=== PATIENT | female | born 1995 | race Caucasian/White ===

== ENCOUNTER 2024-06-12 19:32 | Inpatient (IN) | payer OTHER, SELFPAY ==
[2024-06-12 19:40] VITALS: BMI 29.8
[2024-06-12 20:20] LABS: % Basophils 0.6 % (0-2); % Eosinophils 0.4 % (0-6); % Immature Granulocytes 0.4 % (0-0.5); % Lymphocytes 32.9 % (20.5-51.1); % Monocytes 5.2 % (1.7-9.3); % Neutrophils 60.5 % (42.2-75.2); Absolute Basophils 0.1 10^3/uL (0-0.2); Absolute Lymphocytes 3.4 10^3/uL (1.2-3.4); Absolute Monocytes 0.5 10^3/uL (0.1-0.6); Absolute Neutrophils 6.2 10^3/uL (1.4-6.5); Hematocrit 37.5 % (37.0-47.0); Hemoglobin 13.5 g/dL (12.0-16.0); Mean Corpuscular Hgb 30.9 pg (27.0-31.0); Mean Corpuscular Volume 85.8 fL (81.0-99.0); Mean Platelet Volume 11.7 fL (7.4-10.4); Nucleated Red Blood Cells % 0 %; Platelet Count 225 10^3/uL (130-400); Red Blood Cell Count 4.37 10^6/uL (4.20-5.40); Red Cell Dist. Width 12.2 % (11.5-14.5); White Blood Cell Count 10.2 10^3/uL (4.8-10.8)
[2024-06-12 20:32] VITALS: BP 115/77
[2024-06-12] MEDS: CYTOTEC 25 MICROGRAM VAG (21:43)
[2024-06-13] MEDS: CYTOTEC 50 MICROGRAM PO (01:28)
[2024-06-13] MEDS: LR 1000 IV ×2 (03:24→05:13)
[2024-06-13] MEDS: STADOL 1 MG IV (05:49)
[2024-06-13] MEDS: CYTOTEC PO ×4 (07:00→18:12)
[2024-06-13] MEDS: SUBLIMAZE 100 MCG EPIDURAL (07:23)
[2024-06-13] MEDS: FENTANYL/BUPIVACAINE 100 EPIDURAL (07:24)
[2024-06-13] MEDS: MOTRIN 600 MG PO (21:05)
[2024-06-14 05:15] LABS: Hematocrit 34.7 % (37.0-47.0); Hemoglobin 12.2 g/dL (12.0-16.0)
[2024-06-14] MEDS: PRENATAL PLUS 1 TABLET PO (10:32)
[2024-06-14] MEDS: MOTRIN 600 MG PO ×2 (10:32→21:43)
[2024-06-14] MEDS: TYLENOL 650 MG PO (21:43)
[2024-06-15] MEDS: PRENATAL PLUS 1 TABLET PO (08:13)
== END 2024-06-15 11:30 | disposition home or self-care (01) | DRG 807 ==
LOC: LDRP 19:32
PROVIDERS: Obstetrics & Gynecology; ADMITTING PHYSICIAN Student in an Organized Health Care Education/Training Program
PROC: 3E0P7VZ Introduction of Hormone into Female Reproductive, Via Natural or Artificial Opening (ICD-10-PCS; 2024-06-12)
PROC: 0HQ9XZZ Repair Perineum Skin, External Approach (ICD-10-PCS; 2024-06-13)
PROC: 10E0XZZ Delivery of Products of Conception, External Approach (ICD-10-PCS; 2024-06-13)
DX: O48.0 Post-term pregnancy (principal); Z37.0 Single live birth; Z3A.41 41 weeks gestation of pregnancy; O70.0 First degree perineal laceration during delivery; O69.81X0 Labor and delivery complicated by cord around neck, without compression, not applicable or unspecified
CPT/HCPCS: 36415; 85014; 85018; 85025; 86780; 86850; 86900; 86901